=== PATIENT | female | born 1980 | race Two or more races ===

== ENCOUNTER 2020-01-12 09:49 | Outpatient (CLI) | payer OTHER | END 2020-01-12 10:11 | disposition home or self-care (01) | LOC: SONOGRAMA 09:49 | PROVIDERS: ATTEND Internal Medicine | DX: E03.8 Other specified hypothyroidism (principal) ==

== ENCOUNTER 2020-04-19 14:18 | Outpatient (CLI) | payer OTHER | END 2020-04-19 14:28 | disposition home or self-care (01) | LOC: MAMO-SONO 14:18 | PROVIDERS: ATTEND Internal Medicine | DX: Z12.31 Encounter for screening mammogram for malignant neoplasm of breast (principal); N63.10 Unspecified lump in the right breast, unspecified quadrant; N63.20 Unspecified lump in the left breast, unspecified quadrant ==

== ENCOUNTER 2020-06-19 13:59 | Outpatient (CLI) | payer OTHER | END 2020-06-19 14:11 | disposition home or self-care (01) | LOC: MRI 13:59 | PROVIDERS: ATTEND Family Medicine | DX: Q76.49 Other congenital malformations of spine, not associated with scoliosis (principal); M54.5 Low back pain; M62.838 Other muscle spasm | CPT/HCPCS: 72148 ==

== ENCOUNTER 2020-11-16 14:06 | Outpatient (CLI) | payer OTHER | END 2020-11-16 14:24 | disposition home or self-care (01) | LOC: SONOGRAMA 14:06 | PROVIDERS: ATTEND Internal Medicine | DX: E03.9 Hypothyroidism, unspecified (principal) ==

== ENCOUNTER 2021-05-09 14:05 | Outpatient (CLI) | payer OTHER | END 2021-05-09 14:16 | disposition home or self-care (01) | LOC: MAMO-SONO 14:05 | PROVIDERS: ATTEND Obstetrics & Gynecology | DX: N60.02 Solitary cyst of left breast (principal); N60.01 Solitary cyst of right breast; N60.11 Diffuse cystic mastopathy of right breast; N60.12 Diffuse cystic mastopathy of left breast; Z12.31 Encounter for screening mammogram for malignant neoplasm of breast ==

== ENCOUNTER → 2021-11-20 | Outpatient (CLI) | payer OTHER | END | disposition home or self-care (01) | LOC: RAD 13:43 | DX: R05.9 Cough, unspecified (principal); J06.9 Acute upper respiratory infection, unspecified ==